=== PATIENT | female | born 1970 | race Hispanic/Latino ===

== ENCOUNTER 2017-09-10 21:14 | Emergency (ER) | payer BC, MEDICAID ==
[2017-09-10 23:01] VITALS: BP 115/72; PULSE 69; RESP 18; TEMP 97.9; O2SAT 99
--- NOTE | 2017-09-10 23:07 | C.PDOC ---
History Of Present Illness Patient is a 47 y/o female who presents to the ED with a complaint of nausea and requests heroin detox. Patient admits to using Percocet and other prescribed narcotics; denies any medical complaints at this time. Time Seen by Provider: 09/10/17 21:57 Chief Complaint (Nursing): Substance Abuse History Per: Patient History/Exam Limitations: no limitations Onset/Duration Of Symptoms: Hrs Current Symptoms Are (Timing): Still Present Suicide/Self Injury Attempted (Context): None Modifying Factor(s): Narcotics Associated Symptoms: Other (nausea) Past Medical History Reviewed: Historical Data, Nursing Documentation, Vital Signs Vital Signs: Last Vital Signs Temp 97.9 F 09/10/17 23:01 Pulse 69 09/10/17 23:01 Resp 18 09/10/17 23:01 BP 115/72 09/10/17 23:01 Pulse Ox 99 09/11/17 04:20 - Medical History PMH: Anxiety, Back Problems (3 bulging discs, hx disc surgery 2008), COPD, Depression, Hypercholesterolemia Surgical History: Cholecystectomy Family History: States: No Known Family Hx - Social History Hx Tobacco Use: No Hx Alcohol Use: No Hx Substance Use: Yes Review Of Systems Gastrointestinal: Positive for: Nausea Psych: Positive for: Other (requests detox) Physical Exam - Physical Exam Appears: Well, No Acute Distress, Other (mildly sleepy, easily arousable to tactile stimuli) Eye(s): bilateral: Normal Inspection, PERRL (pupils small but reactive), EOMI Oral Mucosa: Moist Cardiovascular: Rhythm Regular, No Murmur Respiratory: Normal Breath Sounds, No Rales, No Rhonchi, No Wheezing Gait: Steady (ambulatory) ED Course And Treatment O2 Sat by Pulse Oximetry: 99 Pulse Ox Interpretation: Normal Progress Note: Zofran administered. Case discussed with crisis; no detox beds currently available. Patient advised to call department for bed availability and discharged. Pt is stable at discharge Disposition Counseled Patient/Family Regarding: Diagnosis, Need For Followup - Disposition Referrals: Vincent Levy MD [Non-Staff] - Disposition: HOME/ ROUTINE Disposition Time: 23:04 Condition: STABLE Additional Instructions: Please call crisis department at [phone] for available beds Return to ER if worse Instructions: Polysubstance Abuse (DC) Forms: [employer] (Yemeni) - Clinical Impression Clinical Impression: Opiate abuse, continuous - Scribe Statement The provider has reviewed the documentation as recorded by the Scribe Kaylie Ontiveros All medical record entries made by the Scribe were at my direction and personally dictated by me. I have reviewed the chart and agree that the record accurately reflects my personal performance of the history, physical exam, medical decision making, and the department course for this patient. I have also personally directed, reviewed, and agree with the discharge instructions and disposition.
== END 2017-09-10 23:25 | disposition home or self-care (01) ==
LOC: C.ER 21:14
DX: F11.10 Opioid abuse, uncomplicated (principal)

== ENCOUNTER 2017-09-12 15:07 | Inpatient (IN) | payer MEDICAID ==
[2017-09-12 16:48] LABS: BASO # 0.1 K/uL (0.0-0.2); BASO % 0.6 % (0.0-2.0); EOS % 0.3 % (0.0-4.0); HEMOGLOBIN 13.9 g/dL (11.0-16.0); LYMPH # 1.6 K/uL (1.0-4.3); LYMPH % 18.4 % (20.0-40.0); MEAN CELL VOLUME 89.3 fL (81.0-99.0); MEAN CORPUSCULAR HEMOGLOBIN 30.2 pg (27.0-31.0); MEAN CORPUSCULAR HGB CONC 33.8 g/dL (33.0-37.0); MEAN PLATELET VOLUME 8.2 fL (7.2-11.7); MONO # 0.7 K/uL (0.0-0.8); MONO % 7.9 % (0.0-10.0); NEUT # 6.4 K/uL (1.8-7.0); NEUT % 72.8 % (50.0-75.0); RBC 4.61 Mil/uL (3.80-5.20); RED CELL DISTRIBUTION WIDTH 13.9 % (11.5-14.5); WHITE BLOOD COUNT 8.7 K/uL (4.8-10.8)
[2017-09-12 16:49] LABS: HCG,QUALITATIVE URINE NEGATIVE (NEGATIVE)
[2017-09-12 16:51] LABS: SQUAMOUS EPITHIAL 1 /hpf (0-5); URINE BACTERIA RARE (<OCC); URINE BILIRUBIN NEGATIVE (NEGATIVE); URINE BLOOD NEGATIVE (NEGATIVE); URINE CLARITY Hazy (Clear); URINE COLOR Yellow (YELLOW); URINE GLUCOSE (UA) NORMAL (Normal); URINE LEUKOCYTE ESTERASE TRACE Leu/uL (Negative); URINE PROTEIN NEGATIVE (NEGATIVE)
[2017-09-12 17:01] LABS: ALB/GLOB RATIO 1.1 (1.0-2.1); ALBUMIN 3.8 g/dL (3.5-5.0); ALT/SGPT 22 U/L (9-52); AST/SGOT 24 U/L (14-36); BLOOD UREA NITROGEN 13 mg/dL (7-17); CALCIUM 8.3 mg/dl (8.6-10.4); GFR AFRICAN-AMERICAN > 60; GFR NON-AFRICAN AMERICAN > 60
[2017-09-12 17:16] LABS: BARBITURATES, UR NEGATIVE (NEGATIVE); BENZODIAZEPINES, UR NEGATIVE (NEGATIVE); PHENCYCLIDINE, UR NEGATIVE (NEGATIVE)
[2017-09-12 17:25] LABS: OPIATES, UR POSITIVE (NEGATIVE)
--- NOTE | 2017-09-12 17:33 | C.PDOC ---
History Of Present Illness 47 y/o female with history of herniated disc and asthma presents to ED requesting detox from heroin. Patient states she snorts 10-20 bags daily and currently denies suicidal ideation, homicidal ideation or any other physical complaints at this time. requesting nicotine patch in ed. Time Seen by Provider: 09/12/17 16:14 Chief Complaint (Nursing): Substance Abuse History Per: Patient History/Exam Limitations: no limitations Onset/Duration Of Symptoms: Days Current Symptoms Are (Timing): Still Present Suicide/Self Injury Attempted (Context): None Past Medical History Reviewed: Historical Data, Nursing Documentation, Vital Signs Vital Signs: Last Vital Signs Temp 98 F 09/12/17 15:43 Pulse 73 09/12/17 15:43 Resp 16 09/12/17 15:43 BP 134/85 09/12/17 15:43 Pulse Ox 97 09/12/17 17:38 - Medical History PMH: Anxiety, Asthma, Back Problems (3 bulging discs, hx disc surgery 2008), COPD, Depression Surgical History: Back Surgery, Cholecystectomy Family History: States: No Known Family Hx - Social History Hx Tobacco Use: No Hx Alcohol Use: Yes Hx Substance Use: Yes (last use 2 days ago) - Immunization History Hx Tetanus Toxoid Vaccination: No Hx Influenza Vaccination: No Hx Pneumococcal Vaccination: No Review Of Systems Constitutional: Negative for: Fever, Chills Cardiovascular: Negative for: Chest Pain Gastrointestinal: Negative for: Nausea, Vomiting Psych: Negative for: Suicidal ideation, Withdrawal Physical Exam - Physical Exam Appears: Non-toxic, No Acute Distress Skin: Warm, Dry, No Rash Head: Atraumatic, Normacephalic Eye(s): bilateral: PERRL, EOMI Oral Mucosa: Moist Neck: Normal ROM, Supple Cardiovascular: Rhythm Regular Respiratory: Normal Breath Sounds, No Rales, No Rhonchi, No Wheezing Gastrointestinal/Abdominal: Soft, No Tenderness, No Guarding, No Rebound Extremity: Normal ROM, Capillary Refill (<2 seconds) Neurological/Psych: Oriented x3, Normal Speech, Normal Cognition ED Course And Treatment - Laboratory Results Result Diagrams: 09/12/17 16:41 09/12/17 16:41 O2 Sat by Pulse Oximetry: 97 (RA) Pulse Ox Interpretation: Normal Medical Decision Making Medical Decision Making: Plan: Nicotine Patch ordered. Progress: Patient medically cleared for detox admission Disposition Discussed With : Hannah Glover Doctor Will See Patient In The: Hospital - Disposition Disposition: HOSPITALIZED Disposition Time: 17:52 Condition: GOOD Forms: [facility] (Marshallese) - Clinical Impression Clinical Impression: Opioid use disorder, severe, dependence - PA / AIR TABLE OPERATOR / Resident Statement MD/DO has reviewed & agrees with the documentation as recorded. - Scribe Statement The provider has reviewed the documentation as recorded by the Yovannyibjoseph Yan All medical record entries made by the Karey were at my direction and personally dictated by me. I have reviewed the chart and agree that the record accurately reflects my personal performance of the history, physical exam, medical decision making, and the department course for this patient. I have also personally directed, reviewed, and agree with the discharge instructions and disposition.
--- NOTE | 2017-09-12 18:17 | PCM.BM ---
<Tara Ziegler - Last Filed: 09/12/17 18:15> Treatment Plan Problems - Problems identified on initial assessmt potiential for opiate withdrawal Date Initiated: 09/12/17 Time Initiated: 18:16 Assessment reference: NA Status: Active Treatment assets and liabiliti Patient Assests: ADL independent, cognitively intact Patient Liabilities: substance abuse, medical problems - Milieu Protocol Maintain good personal hygiene: daily Encourage regular showers, daily Remind patient to perform daily oral care, daily Assist patient to perform ADL's Maintain personal safety: every shift Educate patient to report safety concerns to staff, every shift Monitor environment for contraband/sharps Medication safety: Monitor for expected outcome, potential side effects: every shift, Assess barriers to learning: every shift, Assess readiness for medication education: every shift <Hannah Glover - Last Filed: 09/13/17 17:25> - Diagnosis (1) Opioid use disorder, severe, dependence Status: Acute Interventions: 09/13/17 17:25 * Assess 7x/week regarding severity of withdrawal * Educate regarding risks, benefits, side effects and alternatives of medications * Use Motivational Interviewing for abstinence * Use CBT for relapse prevention * Medication management for withdrawal symptoms * Encourage medication assisted treatment * <Barbara Macario - Last Filed: 09/17/17 14:09> Family Contact Family contact: Patient agrees to contact, Telephone contact initiated by staff Family contact name: Pt's son Family contacted how many times per week?: 1 - Goals for Treatment Patient goals for treatment: Complete detox and apply for rehab in [place]. Discharge/Continuing Care - Education Needs Education Needs: Family Medication, Family Diagnosis/Disease Process, Family Coping Skills, Family Community resources, Patient Medication, Patient Diagnosis /Disease Process, Patient Coping Skills, Patient Anger Management skills, Patient Placement options, Patient Community resources - Discharge Discharge Criteria: Free of agitation, Normal sleep pattern, No longer exhibiting s/s of withdrawal, Reduction of target symptoms Discharge to:: Substance Abuse Rehab - Treatment Team Participation Patient/Family/SO Statement: 09/17/17 14:09 "I wanna go to [facility]..." Discussed with Family/SO: No Was Patient/Family/SO present at Treatment Team Meeting: Yes
[2017-09-12] MEDS ORDERED: Buprenorphine Hydrochloride 2 mg SL ONE ×3 (19:33→22:45)
[2017-09-13] MEDS: Buprenorphine Hydrochloride 2 mg SL SCH (09:40)
--- NOTE | 2017-09-13 13:23 | PCM.PSYCH ---
Initial Psychiatric Evaluation - Initial Psychiatric Evaluation Type of Admission: Voluntary Legal Status: Capacity Chief Complaint (in patient's own words): "I am not well" History of Present Illness and Precipitating Events: The pt is seen, chart reviewed and case discussed She is a 47 yo LF, single with an adult child, on disability bc of a stroke and lives at [facility] now. She reports 10-20 bags of heroin intranasal use since 2015 but first use was in 2011, and first painkiller use was in 2006. This is her first detox, no rehab, no MAT Used cocaine po/i.n. until 1997, uses MJ occasionally and smokes 1 ppd cig. Denies all other alcohol and drug use Has anxiety, christiana. panic attacks. Past psych hx: Anxiety but no adm or alfonso attempt Family psych hx: Brother and sister used opiates Medical hx: Stroke (her L hand is still not functioning well but she gets by) Arthritis and has 8 disc hernias - pending "another surgery" Current Medications: Active Medications Generic Name Dose Route Start Last Admin Trade Name Freq PRN Reason Stop Dose Admin Al Hydrox/Mg Hydrox/Simethicone 30 ml 09/12/17 20:17 Maalox 30 Ml PO TID PRN Indigestion / Heartburn Aspirin 325 mg 09/13/17 10:00 09/13/17 11:02 Aspirin PO 325 mg DAILY TIM Administration Buprenorphine HCl 8 mg 09/13/17 10:00 09/13/17 09:40 Subutex SL 09/17/17 09:59 8 mg DAILY TIM Administration Taper Clonidine HCl 0.1 mg 09/12/17 20:17 Catapres PO Q8 PRN COWS Score More or Equal to 5 Gabapentin 600 mg 09/13/17 10:00 09/13/17 09:39 Neurontin PO 600 mg BID TIM Administration Home Med 0 drop 09/13/17 18:00 Patient's Own Drops OU BID TIM Hydroxyzine HCl 50 mg 09/12/17 20:13 09/13/17 11:05 Atarax PO 50 mg Q6H PRN Administration Anxiety Ibuprofen 600 mg 09/12/17 20:13 Motrin Tab PO Q6H PRN Pain, moderate (4-7) Loperamide HCl 2 mg 09/12/17 20:17 Imodium PO Q8 PRN Diarrhea Nicotine 1 patch 09/13/17 10:00 09/13/17 09:39 Nicoderm Cq TD 1 patch DAILY TIM Administration Ondansetron HCl 4 mg 09/12/17 20:17 09/13/17 12:22 Zofran Tab PO 4 mg Q8 PRN Administration Nausea/Vomiting Pantoprazole Sodium 40 mg 09/13/17 13:00 Protonix Ec Tab PO DAILY TIM Trazodone HCl 100 mg 09/12/17 20:13 09/12/17 23:10 Desyrel PO 100 mg HS PRN Administration Insomnia Past Psychiatric History - Past Psychiatric History Previous Treatment History: None Pertinent Medical Hx (Current Medical&Sleep Prob, Allergies): Allergies Allergy/AdvReac Type Severity Reaction Status Date / Time codeine Allergy Severe NAUSEA Verified 09/12/17 15:43 Benzonatate [Tessalon Perles] 100 mg PO TID 09/12/17 Nortriptyline HCl [Pamelor] 10 mg PO HS 09/12/17 RX: Aspirin 325 mg PO DAILY 09/12/17 RX: Baclofen [Lioresal] 10 mg PO TID PRN 09/12/17 RX: Gabapentin 600 mg PO TID 09/12/17 Review of Systems - Neurological Neurological: Focal Weakness, Weakness - Psychiatric Psychiatric: Abnormal Sleep Pattern, Anxiety, Change in Appetite, Difficulty Concentrating, Irritability, Panic Attacks. absent: Hallucinations, Homicidal Ideation, Suicidal Ideation Mental Status Examination - Personal Presentation Personal Presentation: Looks older than stated age - Affect Affect: Constricted - Motor Activity Motor Activity: Other (restless) - Reliability in Providing Information Reliability in Providing Information: Fair - Speech Speech: Organized - Mood Mood: Anxious - Formal Thought Process Formal Thought Process: No Impairment - Cognitive Functions Orientation: Person, Place, Situation, Time Sensorium: Alert Attention/Concentration: Attentive Abstract Thinking: Irons Estimate of Intelligence: Average Judgement: Intact, as evidence by: Insight regarding need for hospitalization Memory: Recent intact, as evidence by: Ability to recall events of the day, Remote intact, as evidenced by: Abilit to recall sig. life events - Risk Risk: Withdrawal, Diminished functioning - Strength & Assets Inventory Strength & Assets Inventory: Cooperative - Limitations Limitations: Living alone DSM 5 DX - DSM 5 DSM 5 Diagnosis: Opioid withdrawal Opioid use d/o - severe Cocaine use d/o in remission Tobacco use d/o - severe Panic d/o - w/o agoraphobia Personality d/o - unspecified - Recommended/Plan of Treatment Treatment Recommendations and Plan of Treatment: Subutex detox As needed medications Gabapentin for augmentation if needed All risks, benefits and alternatives of medications, including no medications, discussed and the patient understood and agreed. Attend groups and activities Supportive therapy and psychoeducation [place] for abstinence CBT for relapse prevention Encourage MAT Refer to rehab or IOP Attend self-help groups as well [place] for smoking cessation and patch if needed 34 min Projected ELOS: 4-5 days Prognosis: fair to good - Smoking Cessation Smoking Cessation Initiated: Yes
[2017-09-13] MEDS: Pantoprazole 40 mg EC Tab PO SCH (13:36)
[2017-09-13] MEDS: Aluminum Hydroxide/Magnesium Hydroxide Susp (30 mL) PO PRN ×2 (13:36→21:40)
[2017-09-13] MEDS: KETOTIFEN 0.025% OU SCH (17:36)
[2017-09-13] MEDS ORDERED: Buprenorphine Hydrochloride 2 mg SL ONE (19:32)
--- NOTE | 2017-09-14 08:12 | RAD ---
HISTORY: for rehab COMPARISON: No prior. TECHNIQUE: Chest PA and lateral FINDINGS: LUNGS: Left hilar prominence is appreciated with the right hilar vascular markings appear normal. Well left-sided finding could reflect vascular overlap, a mass or lymphadenopathy is not excluded and follow-up chest CT with contrast is advised for better characterization. Limited linear atelectasis right base. No no definitive infiltrate identified bilaterally. PLEURA: No significant pleural effusion identified. No pneumothorax apparent. CARDIOVASCULAR: Upper limits normal cardiac size. No pulmonary vascular derangement. OSSEOUS STRUCTURES: No significant abnormalities. VISUALIZED UPPER ABDOMEN: Surgical clips at right upper quadrant suggest prior cholecystectomy. OTHER FINDINGS: None. IMPRESSION: Prominent left hilar density for which follow-up chest CT with contrast is advised for better characterization. A mass is not excluded here or lymphadenopathy. Upper limits normal cardiac size. No pulmonary vascular congestion.
[2017-09-14] MEDS: Pantoprazole 40 mg EC Tab PO SCH (09:50)
[2017-09-14] MEDS: Buprenorphine Hydrochloride 2 mg SL SCH (09:50)
[2017-09-14] MEDS: KETOTIFEN 0.025% OU SCH ×2 (09:52→17:48)
[2017-09-14] MEDS: Aluminum Hydroxide/Magnesium Hydroxide Susp (30 mL) PO PRN ×2 (11:16→17:27)
[2017-09-14] MEDS ORDERED: Buprenorphine Hydrochloride 2 mg SL ONE (18:00)
[2017-09-15] MEDS: Aluminum Hydroxide/Magnesium Hydroxide Susp (30 mL) PO PRN (01:14)
--- NOTE | 2017-09-15 06:25 | PCM.PYCHPN ---
Psychiatric Progress Note - Psychiatric Progress Note Patient seen today, length of contact: 16 min Patient Chief Complaint: "I am not OK" Problems Identified/Issues Discussed: The pt is seen, chart reviewed, case discussed with staff. The pt is compliant with medications and reports no side-effects. Symptoms are improving but needs more time to stabilize. After care discussed, support and psychoeducation given. She has breakthru sx - got an injection of ativan Medication Change: Yes (detox changes daily) Medical Record Reviewed: Yes Mental Status Examination - Cognitive Function Orientation: Person, Place, Situation, Time Memory: Intact Attention: WNL Concentration: Poor Association: WNL Fund of Knowledge: WNL - Mood Mood: Anxious - Affect Affect: Constricted - Speech Speech: Appropriate - Formal Thought Process Formal Thought Process: No Impairment - Suicidal Ideation Suicidal Ideation: No - Homicidal Ideation Homicidal Ideation: No Goal/Treatment Plan - Goal/Treatment Plan Need for Continued Stay: Discharge may exacerbated symptoms, Severe functional impairment Progress Toward Problem(s) and Goals/Treatment Plan: Subutex detox As needed medications Gabapentin for augmentation if needed All risks, benefits and alternatives of medications, including no medications, discussed and the patient understood and agreed. Attend groups and activities Supportive therapy and psychoeducation [place] for abstinence CBT for relapse prevention Encourage MAT Refer to rehab or IOP Attend self-help groups as well [place] for smoking cessation and patch if needed
[2017-09-15] MEDS: Albuterol HFA 90 mcg/actuation (8 g) INH PRN ×2 (07:45→18:05)
[2017-09-15] MEDS: Pantoprazole 40 mg EC Tab PO SCH (09:17)
[2017-09-15] MEDS: Buprenorphine Hydrochloride 2 mg SL SCH (09:22)
[2017-09-15] MEDS: KETOTIFEN 0.025% OU SCH ×2 (09:22→18:00)
--- NOTE | 2017-09-15 14:22 | PCM.PYCHPN ---
Psychiatric Progress Note - Psychiatric Progress Note Patient seen today, length of contact: 15 min Patient Chief Complaint: "I am agitated and anxious today" Problems Identified/Issues Discussed: The pt is seen, chart reviewed, case discussed with staff. The pt is compliant with medications and reports no side-effects. Symptoms are improving but needs more time to stabilize. After care discussed, support and psychoeducation given. Medication Change: Yes (detox changes daily) Medical Record Reviewed: Yes Mental Status Examination - Cognitive Function Orientation: Person, Place, Situation, Time Memory: Intact Attention: WNL Concentration: Poor Association: WNL Fund of Knowledge: WNL - Mood Mood: Anxious, Other (Agitated) - Affect Affect: Constricted - Speech Speech: Appropriate - Formal Thought Process Formal Thought Process: No Impairment - Suicidal Ideation Suicidal Ideation: No - Homicidal Ideation Homicidal Ideation: No Goal/Treatment Plan - Goal/Treatment Plan Need for Continued Stay: Discharge may exacerbated symptoms, Severe functional impairment Progress Toward Problem(s) and Goals/Treatment Plan: Subutex detox As needed medications Gabapentin for augmentation if needed All risks, benefits and alternatives of medications, including no medications, discussed and the patient understood and agreed. Attend groups and activities Supportive therapy and psychoeducation [place] for abstinence CBT for relapse prevention Encourage MAT Refer to rehab or IOP Attend self-help groups as well [place] for smoking cessation and patch if needed
[2017-09-15] MEDS ORDERED: Buprenorphine Hydrochloride 2 mg SL ONE (16:00)
[2017-09-15] MEDS ORDERED: Albuterol 0.083% Inhal Sol (2.5 mg/3 mL) UD ONE (20:46)
[2017-09-15] MEDS: Albuterol-Ipratrop 3 mg / 0.5 (3 ml) UD INH PRN (20:56)
[2017-09-16] MEDS: KETOTIFEN 0.025% OU SCH ×2 (09:07→18:11)
[2017-09-16] MEDS: Buprenorphine Hydrochloride 2 mg SL SCH (09:08)
[2017-09-16] MEDS: Pantoprazole 40 mg EC Tab PO SCH (09:08)
--- NOTE | 2017-09-16 14:19 | PCM.PYCHPN ---
Psychiatric Progress Note - Psychiatric Progress Note Patient seen today, length of contact: 17 min Patient Chief Complaint: "I am in a lot of pain today" Problems Identified/Issues Discussed: The pt is seen, chart reviewed, case discussed with staff. The pt is compliant with medications and reports no side-effects. Symptoms are improving but needs more time to stabilize. Still irate but less so. After care discussed again, support and psychoeducation given. Patient interested in going to [facility] [place] She says she can wait if she has to Medication Change: Yes (detox changes daily) Medical Record Reviewed: Yes Mental Status Examination - Cognitive Function Orientation: Person, Place, Situation, Time Memory: Intact Attention: WNL Concentration: Poor Association: WNL Fund of Knowledge: WNL - Mood Mood: Anxious - Affect Affect: Constricted - Speech Speech: Appropriate - Formal Thought Process Formal Thought Process: No Impairment - Suicidal Ideation Suicidal Ideation: No - Homicidal Ideation Homicidal Ideation: No Goal/Treatment Plan - Goal/Treatment Plan Need for Continued Stay: Discharge may exacerbated symptoms, Severe functional impairment Progress Toward Problem(s) and Goals/Treatment Plan: Subutex detox As needed medications Gabapentin for augmentation if needed All risks, benefits and alternatives of medications, including no medications, discussed and the patient understood and agreed. Attend groups and activities Supportive therapy and psychoeducation [place] for abstinence CBT for relapse prevention Encourage MAT Refer to rehab or IOP, patient expressed interest in [facility] [place] Attend self-help groups as well [place] for smoking cessation and patch if needed Estimated Date of D/C: 09/18/17
[2017-09-16] MEDS: Albuterol-Ipratrop 3 mg / 0.5 (3 ml) UD INH PRN (14:47)
[2017-09-16] MEDS ORDERED: Buprenorphine Hydrochloride 2 mg SL ONE ×2 (16:12→19:00)
[2017-09-16] MEDS ORDERED: Vitamins A & D Oint UD Foilpak TOP PRN (18:00)
[2017-09-16] MEDS: Albuterol HFA 90 mcg/actuation (8 g) INH PRN (21:56)
--- NOTE | 2017-09-16 22:09 | CARD ---
APPROVED REPORT EKG Measurement Heart [id number] <Conclusion> Sinus bradycardia Otherwise normal ECG
[2017-09-17] MEDS: KETOTIFEN 0.025% OU SCH ×2 (09:32→17:05)
[2017-09-17] MEDS: Buprenorphine Hydrochloride 2 mg SL SCH ×2 (09:33→17:06)
[2017-09-17] MEDS: Pantoprazole 40 mg EC Tab PO SCH (09:33)
--- NOTE | 2017-09-17 11:41 | PCM.PYCHPN ---
Psychiatric Progress Note - Psychiatric Progress Note Patient seen today, length of contact: 20 min Patient Chief Complaint: "I'm not ok, I can't rest my mind or body" Problems Identified/Issues Discussed: The pt is seen, chart reviewed, case discussed with staff. Support given, CBT and [place] used briefly No new symptoms reported, improving slowly and needs more time No SEs from medications, risks discussed. After care discussed again, support and psychoeducation given Patient complains of pain, and is agitated. Medication Change: Yes (detox changes daily) Medical Record Reviewed: Yes Mental Status Examination - Cognitive Function Orientation: Person, Place, Situation, Time Memory: Intact Attention: WNL Concentration: Poor Association: WNL Fund of Knowledge: WNL - Mood Mood: Anxious - Affect Affect: Constricted - Speech Speech: Appropriate - Formal Thought Process Formal Thought Process: No Impairment - Suicidal Ideation Suicidal Ideation: No - Homicidal Ideation Homicidal Ideation: No Goal/Treatment Plan - Goal/Treatment Plan Need for Continued Stay: Discharge may exacerbated symptoms, Severe functional impairment Progress Toward Problem(s) and Goals/Treatment Plan: Subutex detox As needed medications Gabapentin for augmentation if needed All risks, benefits and alternatives of medications, including no medications, discussed and the patient understood and agreed. Attend groups and activities Supportive therapy and psychoeducation [place] for abstinence CBT for relapse prevention Encourage MAT Refer to rehab or IOP, patient expressed interest in [facility] Attend self-help groups as well [place] for smoking cessation and patch if needed Estimated Date of D/C: 09/18/17
--- NOTE | 2017-09-17 23:33 | PCM.FALL ---
Post Fall Progress Note - Post Fall Fall Date: 09/17/17 Fall Time: 11:20 - Post Fall Exam Vital Sign: Temp Pulse Resp BP Pulse Ox 97.6 F 74 18 121/80 95 09/17/17 21:40 09/17/17 21:40 09/17/17 21:40 09/17/17 21:40 09/17/17 21:40 Skull Exam: Negative for: Scalp wound, Scalp hematoma, Scalp depression, Ridge in skull Eye Exam: Positive for: Pupils equal, Pupils reactive Ear Exam: Negative for: Discharge, Bleeding Nose Exam: Negative for: Discharge, Bleeding Skin Exam: Negative for: Lacerations, Grazes, Bruising Mouth Exam: Negative for: Tongue bitten, Teeth dislodge Neck Exam: Negative for: Tenderness, Tingling, Weakness Spinal Exam: Negative for: Tenderness, Tingling, Weakness Chest Exam: Negative for: Difficulty breathing, Tenderness in collar bones, Tenderness in ribs Abdomen Exam: Negative for: Tenderness Pelvic Exam: Negative for: Tenderness, Hematuria Arm Exam: Negative for: Deformity Leg Exam: Negative for: Deformity Impression/Plan: Patient had just taken Trazodone 100mg 30 minutes prior had jumped out of bed to request seroquel for sleep 2/2 to insomnia started to become light headed while waiting at the nursing station witnessed fall, patient slumped onto buttocks patient able to get up from floor with no pain BP on floor 110/80, BP after standing in chair was 130/90, negative orthostatic changes patient to remain in current setting, increase PO intake as patient is withdrawing from heroin and has not been eating/drinking adequate fluids Abhishek Lion PGY2
[2017-09-17 23:48] VITALS: O2SAT 97
--- NOTE | 2017-09-18 08:50 | PCM.PYCHDC ---
Mental Status Examination - Mental Status Examination Orientation: Person, Place, Situation, Time Memory: Intact Mood: Anxious Affect: Constricted Speech: Appropriate Attention: WNL Concentration: Poor Association: WNL Fund of Knowledge: WNL Formal Thought Process: No Impairment Suicidal Ideation: No Current Homicidal Ideation?: No Discharge Summary - Discharge Note Reason for Hospitalization: Opioid detox Consultations:: List each consultation separately and include: 1. Reason for request. 2. Findings. 3. Follow-up Summary of Hospital Course include:: 1. Description of specific treatment plan utilized for patients during their course of treatmen. 2. Summarize the time- course for resolution of acute symptoms and/or regressed behaviors. 3. Describe issues identified and worked on during hospitalization. 4. Describe medication utilized. 5. Describe medical problems identified and treated. 6. Reassessment of suicide risk Summary of Hospital Course: The pt is seen, chart reviewed and case discussed On admission: She is a 47 yo LF, single with an adult child, on disability bc of a stroke and lives at [facility] now. She reports 10-20 bags of heroin intranasal use since 2015 but first use was in 2011, and first painkiller use was in 2006. This is her first detox, no rehab, no MAT Used cocaine po/i.n. until 1997, uses MJ occasionally and smokes 1 ppd cig. Denies all other alcohol and drug use Has anxiety, christiana. panic attacks. Past psych hx: Anxiety but no adm or alfonso attempt Family psych hx: Brother and sister used opiates Medical hx: Stroke (her L hand is still not functioning well but she gets by) Arthritis and has 8 disc hernias - pending "another surgery" Hospital course: The pt was admitted and started on treatment with psychotherapy, support, psychoeducation and medications. TX and CBT used. The pt attended groups and activities, as well as milieu therapy. All the risks and benefits of medications are discussed and the patient understood and agreed. The pt improved with the treatments provided. She never admitted that she had improved, though - and was always complaining of smt. She also fell softly this morning and she was OK when checked. She did not hit her head. She says her son will lock her up until she gets into rehab b/c of her relapse risk. How to avoid relapse discussed in detail. After care discussed with the patient. The pt will wait for [facility] but may get into [facility] in [facility], before that. Will be at her son's house "locked up." - Final Diagnosis (DSM 5) Condition upon Discharge: GOOD DSM 5: Opioid withdrawal Opioid use d/o - severe Cocaine use d/o in remission Tobacco use d/o - severe Panic d/o - w/o agoraphobia Personality d/o - unspecified Disposition: HOME/ ROUTINE Follow-up Treatment Plan: Continue below medications after discharge. Follow after care plan as discussed. Use relapse prevention skills Return to ER or call 911 if suicidal, homicidal or symptoms relapse. Stay away from stress, alcohol and drugs. See primary doctor regularly and get labs. Prescriptions/Medication Reconciliation: hydrOXYzine HCl [Atarax] 50 mg PO BID PRN #60 tab PRN Reason: Anxiety Prazosin HCl [Minipress] 1 mg PO HS #30 cap QUEtiapine [Seroquel] 100 mg PO HS #30 tab traZODone [Desyrel] 100 mg PO HS PRN #30 tab PRN Reason: Insomnia - Smoking Cessation Smoking Cessation Medication prescribed: No - Antipsychotic Medications Pt discharged on 2 or more routine antipsychotic medications: No
[2017-09-18] MEDS: Buprenorphine Hydrochloride 2 mg SL SCH (09:26)
[2017-09-18] MEDS: Pantoprazole 40 mg EC Tab PO SCH (09:26)
[2017-09-18] MEDS: KETOTIFEN 0.025% OU SCH (09:32)
[2017-09-18 09:59] VITALS: BP 114/78; PULSE 63; RESP 19; TEMP 98.1
== END 2017-09-18 10:59 | disposition home or self-care (01) | DRG 744 ==
LOC: C.ER 15:07 → C.7D 17:53
PROVIDERS: ADMIT Psychiatry & Neurology Psychiatry; ATTEND Psychiatry & Neurology Psychiatry
PROC: HZ2ZZZZ Detoxification Services for Substance Abuse Treatment (ICD-10-PCS; principal; 2017-09-12)
PROC: HZ52ZZZ Individual Psychotherapy for Substance Abuse Treatment, Cognitive-Behavioral (ICD-10-PCS; 2017-09-12)
PROC: HZ59ZZZ Individual Psychotherapy for Substance Abuse Treatment, Supportive (ICD-10-PCS; 2017-09-12)
PROC: HZ56ZZZ Individual Psychotherapy for Substance Abuse Treatment, Psychoeducation (ICD-10-PCS; 2017-09-12)
PROC: HZ42ZZZ Group Counseling for Substance Abuse Treatment, Cognitive-Behavioral (ICD-10-PCS; 2017-09-12)
PROC: HZ46ZZZ Group Counseling for Substance Abuse Treatment, Psychoeducation (ICD-10-PCS; 2017-09-12)
DX: F11.23 Opioid dependence with withdrawal (principal); J44.9 Chronic obstructive pulmonary disease, unspecified; F14.21 Cocaine dependence, in remission; F41.0 Panic disorder [episodic paroxysmal anxiety]; Z86.73 Personal history of transient ischemic attack (TIA), and cerebral infarction without residual deficits; F60.9 Personality disorder, unspecified; F17.210 Nicotine dependence, cigarettes, uncomplicated; F32.9 Major depressive disorder, single episode, unspecified; Z90.49 Acquired absence of other specified parts of digestive tract

== ENCOUNTER 2018-04-26 12:30 | Emergency (ER) | payer MEDICARE ==
--- NOTE | 2018-04-26 13:04 | C.PDOC ---
History Of Present Illness 47 years old female is brought to ED by ambulance for sleeping in the streets after using heroin. Patient admits to heroin use today. Patient also complaints of nausea. Denies vomiting, fever, chills, or any other complaints. Time Seen by Provider: 04/26/18 12:37 Chief Complaint (Nursing): Substance Abuse History Per: Patient, EMS History/Exam Limitations: no limitations Onset/Duration Of Symptoms: Hrs Current Symptoms Are (Timing): Still Present Suicide/Self Injury Attempted (Context): None Modifying Factor(s): Narcotics (Heroin ) Associated Symptoms: denies: Suicidal Thoughts, Suicidal Plan Involuntary Hold By: None Recent travel outside of the [place]: No Past Medical History Reviewed: Historical Data, Nursing Documentation, Vital Signs Vital Signs: Last Vital Signs Temp 97.9 F 04/26/18 12:45 Pulse 97 H 04/26/18 12:45 Resp 15 04/26/18 12:45 BP 159/88 H 04/26/18 12:45 Pulse Ox 95 04/26/18 12:45 - Medical History PMH: Anxiety, Asthma, Back Problems (3 bulging discs, hx disc surgery 2008), COPD, Depression Surgical History: Back Surgery, Cholecystectomy - [facility] Procedures DETOXIFICATION SERVICES FOR SUBSTANCE ABUSE TREATMENT (09/12/17) GROUP TARIFF SUPERVISOR FOR SUBSTANCE ABUSE TREATMENT, PSYCHOEDUCATION (09/12/17) GROUP TARIFF SUPERVISOR FOR SUBSTANCE ABUSE, COGNITIVE BEHAVIORAL (09/12/17) INDIV PSYCHOTHERAPY FOR SUBSTANCE ABUSE TREATMENT, SUPPORT (09/12/17) INDIV PSYCHOTHERAPY FOR SUBSTANCE ABUSE, COGNITIV BEHAVIORAL (09/12/17) INDIV PSYCHOTHERAPY FOR SUBSTANCE ABUSE, PSYCHOEDUCATION (09/12/17) Family History: States: No Known Family Hx - Social History Hx Tobacco Use: No Hx Alcohol Use: Yes Hx Substance Use: Yes - Immunization History Hx Tetanus Toxoid Vaccination: No Hx Influenza Vaccination: No Hx Pneumococcal Vaccination: No Review Of Systems Constitutional: Negative for: Fever, Chills Gastrointestinal: Positive for: Nausea. Negative for: Vomiting, Abdominal Pain, Diarrhea Skin: Negative for: Rash Neurological: Negative for: Weakness, Numbness Physical Exam - Physical Exam Appears: Non-toxic, No Acute Distress, Unkempt Skin: Normal Color, Warm, Dry, No Rash Head: Atraumatic, Normacephalic, Other (No evidence of trauma ) Eye(s): bilateral: Normal Inspection, PERRL, EOMI Oral Mucosa: Moist Neck: Supple Chest: Symmetrical, No Tenderness Cardiovascular: Rhythm Regular Respiratory: Normal Breath Sounds, No Rales, No Rhonchi, No Wheezing Gastrointestinal/Abdominal: Bowel Sounds (Active ), Soft, No Tenderness Extremity: Normal ROM Extremity: Bilateral: Atraumatic, Normal Color And Temperature, Normal ROM Pulses: Left Radial: Normal, Right Radial: Normal Neurological/Psych: Oriented x3 (Awake and alert ), Normal Speech Gait: Steady ED Course And Treatment O2 Sat by Pulse Oximetry: 95 (RA) Pulse Ox Interpretation: Normal Progress Note: Administered Zofran. Disposition Counseled Patient/Family Regarding: Studies Performed, Diagnosis, Need For Followup, Rx Given - Disposition Referrals: Vincent Levy MD [Non-Staff] - Disposition: HOME/ ROUTINE Disposition Time: 13:05 Condition: STABLE Additional Instructions: FOLLOW UP WITH YOUR DOCTOR IN 1-2 DAYS USE NAUSEA MEDICATION NEEDED RETURN TO ER IF SYMPTOMS WORSEN Prescriptions: Ondansetron ODT [Zofran ODT] 1 odt PO BID PRN #12 odt PRN Reason: Nausea/Vomiting Instructions: Drug Abuse and Drug Addiction (DC) Forms: [employer] (Mohawk) Print Language: SWEDISH - Clinical Impression Clinical Impression: Heroin use, Nausea & vomiting - Scribe Statement The provider has reviewed the documentation as recorded by the Karey Swift All medical record entries made by the Yovannyibjoseph were at my direction and personally dictated by me. I have reviewed the chart and agree that the record accurately reflects my personal performance of the history, physical exam, medical decision making, and the department course for this patient. I have also personally directed, reviewed, and agree with the discharge instructions and disposition.
[2018-04-26] MEDS ORDERED: Lidocaine Hydrochloride 5 ML INJ ONE (13:09)
[2018-04-26 15:11] VITALS: BP 140/78; PULSE 89; RESP 16; TEMP 97.8; O2SAT 96
== END 2018-04-26 15:10 | disposition home or self-care (01) ==
LOC: C.ER 12:30
DX: F11.90 Opioid use, unspecified, uncomplicated (principal); R11.2 Nausea with vomiting, unspecified